=== PATIENT | male | born 1955 | race Caucasian/White ===

== ENCOUNTER 2017-08-27 22:32 | Emergency (ER) | payer BC, OTHER ==
--- NOTE | 2017-08-28 00:28 | ED ---
Head Injury - HPI Summary HPI Summary: Patient who had been drinking multiple beers was playing Frisbee with his dog when he slipped on the grass and hit his head. States he could not move any limb and did not have any sensation in his body for 5 minutes. Patient now ambulatory, states symptoms has resolved. Small abrasion to forehead, right thumb, contusion to start her head and some left-sided neck stiffness. Denies headache, LOC, vision change, N/V, focal deficits, AMS, trauma to face, nose, mouth, back pain, abdominal pain, chest wall pain, bilateral lower extremity pain, bilateral upper extremity pain. Medical history is none. No anti-coag. - History Of Current Complaint Chief Complaint: EDHeadInjury Stated Complaint: FALL/HEAD AND BACK INJURY Time Seen by Provider: 08/27/17 22:47 Hx Obtained From: Patient Mechanism Of Injury: Fall From A Standing Position Onset/Duration: Started Hours Ago Severity Currently: None Pain Intensity: 0 Pain Scale Used: 0-10 Numeric Location of Head Injury: Occipital Associated Signs And Symptoms: Neck Pain, Numbness - Allergies/Home Medications Allergies/Adverse Reactions: Allergies Allergy/AdvReac Type Severity Reaction Status Date / Time No Known Allergies Allergy Verified 08/27/17 22:35 PMH/Surg Hx/FS Hx/Imm Hx Endocrine/Hematology History: Denies: Hx Anticoagulant Therapy Cardiovascular History: Denies: Hx Cardiac Arrest Respiratory History: Denies: Hx Lung Cancer Musculoskeletal History: Reports: Hx Back Problems - Back injury 02/2015 Neurological History: Denies: Hx CVA Infectious Disease History: No Infectious Disease History: Denies: Traveled Outside the [place] in Last 30 Days - Family History Known Family History: Positive: None - N/C - Social History Alcohol Use: Daily Alcohol Amount: 6-7 beers daily Substance Use Type: Reports: None Hx Tobacco Use: No Smoking Status (MU): Never Smoked Tobacco Review of Systems Constitutional: Negative Eyes: Negative ENT: Negative Cardiovascular: Negative Respiratory: Negative Gastrointestinal: Negative Genitourinary: Negative Musculoskeletal: Negative Positive: Bruising Neurological: Negative Psychological: Normal All Other Systems Reviewed And Are Negative: Yes Physical Exam - Summary Physical Exam Summary: Abrasion to forehead, and right second digit. No indication for suturing. Tenderness along left paraspinal muscles of C-spine. Full range of motion of neck. Full range of motion of jaw. No tenderness to palpation. Trauma noted to nose or mouth. Small contusion to posterior head. With no indication of laceration or abrasion. Full range of motion of jaw. No pain with palpation and no ecchymosis, deformity, swelling noted to back, chest wall, abdomen. Patient moves bilateral upper extremities and bilateral lower extremities freely. Patient is alert and oriented, responds appropriately. No loss of sensation in any extremities. Patient ambulatory. Triage Information Reviewed: Yes Vital Signs On Initial Exam: Initial Vitals Temp Pulse Resp BP Pulse Ox 98.8 F 77 18 180/88 95 08/27/17 22:35 08/27/17 22:35 08/27/17 22:35 08/27/17 22:35 08/27/17 22:35 Vital Signs Reviewed: Yes Appearance: Positive: Well-Appearing Skin: Positive: Warm Head/Face: Positive: Normal Head/Face Inspection Eyes: Positive: Normal ENT: Positive: Normal ENT inspection Neck: Positive: Supple Respiratory/Lung Sounds: Positive: Clear to Auscultation Cardiovascular: Positive: Normal Abdomen Description: Positive: Nontender Musculoskeletal: Positive: Normal Neurological: Positive: Normal Psychiatric: Positive: Normal AVPU Assessment: Alert - Claudia Coma Scale Best Eye Response: 4 - Spontaneous Best Motor Response: 6 - Obeys Commands Best Verbal Response: 5 - Oriented Coma Scale Total: 15 Diagnostics - Vital Signs Vital Signs Temp Pulse Resp BP Pulse Ox 08/27/17 22:35 98.8 F 77 18 180/88 95 - Laboratory Lab Statement: Any lab studies that have been ordered have been reviewed, and results considered in the medical decision making process. Head Injury Course/Dx Course Of Treatment: Patient who had been drinking multiple beers was playing Frisbee with his dog when he slipped on the grass and hit his head. States he could not move any limb and did not have any sensation in his body for 5 minutes. Patient now ambulatory, states symptoms has resolved. Small abrasion to forehead, right thumb, contusion to start her head and some left-sided neck stiffness. Denies headache, LOC, vision change, N/V, focal deficits, AMS, trauma to face, nose, mouth, back pain, abdominal pain, chest wall pain, bilateral lower extremity pain, bilateral upper extremity pain. Medical history is none. No anti-coag. PE: Abrasion to forehead, and right second digit. No indication for suturing. Tenderness along left paraspinal muscles of C-spine. Full range of motion of neck. Full range of motion of jaw. No tenderness to palpation. Trauma noted to nose or mouth. Small contusion to posterior head. With no indication of laceration or abrasion. Full range of motion of jaw. No pain with palpation and no ecchymosis, deformity, swelling noted to back, chest wall, abdomen. Patient moves bilateral upper extremities and bilateral lower extremities freely. Patient is alert and oriented, responds appropriately. No loss of sensation in any extremities. Patient ambulatory. Patient got tired of waiting for CT of head, wants to leave AGAINST MEDICAL ADVICE. Agreed to sign AMA document. Patient alert, oriented, ambulatory, clinically sober. Competent to make decisions regarding his health. - Diagnoses Provider Diagnoses: Fall, Head injury Discharge - Sign-Out/Discharge Documenting (check all that apply): Patient Departure - Discharge Plan Condition: Stable Disposition: AGAINST MEDICAL ADVICE Referrals: Erich Hernandez MD [Primary Care Provider] - - Billing Disposition and Condition Condition: STABLE Disposition: Against Medical Advice
[2017-08-28 00:54] VITALS: BP 0/0
== END 2017-08-27 23:52 | disposition left against medical advice (07) ==
LOC: ED 22:32
DX: S09.90XA Unspecified injury of head, initial encounter (principal); S00.93XA Contusion of unspecified part of head, initial encounter; S00.81XA Abrasion of other part of head, initial encounter; S60.410A Abrasion of right index finger, initial encounter; W01.0XXA Fall on same level from slipping, tripping and stumbling without subsequent striking against object, initial encounter; Y93.89 Activity, other specified; Y92.007 Garden or yard of unspecified non-institutional (private) residence as the place of occurrence of the external cause; M54.2 Cervicalgia; R20.0 Anesthesia of skin
CPT/HCPCS: 99282

== ENCOUNTER 2018-05-08 11:12 | Emergency (ER) | payer BC ==
[2018-05-08] MEDS ORDERED: Ketorolac INJ* 60 MG/2 ML VIAL IM ONE (11:43)
[2018-05-08] MEDS ORDERED: Morphine 10 MG/ML VIAL (1 ml) IM ONE (11:43)
--- NOTE | 2018-05-08 11:46 | ED ---
Back Pain - HPI Summary HPI Summary: This patient is a 62 year old M presenting to ED with a chief complaint of intermittent R lower back pain since a couple days ago. During onset, he was bending over to pick something up and felt a twinge in his back. It took him 5 minutes to get from his car and into his office this morning. He took some Advil and put on a Lidocaine patch. The CC is described as spasms and non- radiating to the groin. The patient rates the pain 8/10 in severity. Symptoms aggravated by movement and ambulation. Symptoms alleviated by sitting at rest. The patient is currently in a wheelchair upon arrival due to the pain. Patient reports tingling and numbness in his fingers bilaterally but denies in his LE. Patient denies incontinence and hematuria. He reports he had a similar episode 4 -5 years ago. PMHx of HTN. Denies hx of aneurysms or kidney stones. The patient reports he saw his PCP a while ago after slipping and falling on concrete steps and they found that he might have arthritis. - History of Current Complaint Chief Complaint: EDBackInjuryPain Stated Complaint: BACK SPASMS PER PT Time Seen by Provider: 05/08/18 11:32 Hx Obtained From: Patient Onset/Duration: Sudden Onset, Lasting Days, Still Present Onset/Duration: Started Days Ago, Still Present Timing: Intermittent Back Pain Location: Is Discrete @ - R lower back Severity Initially: Severe Severity Currently: Severe Pain Intensity: 8 Pain Scale Used: 0-10 Numeric Aggravating Symptom(s): Movement, Walking Alleviating Symptom(s): Rest - in sitting position Associated Signs And Symptoms: Positive: Numbness, Tingling - Allergies/Home Medications Allergies/Adverse Reactions: Allergies Allergy/AdvReac Type Severity Reaction Status Date / Time No Known Allergies Allergy Verified 05/08/18 11:24 Home Medications: Home Medications F Heart Med PO DAILY 05/08/18 [History] PMH/Surg Hx/FS Hx/Imm Hx Endocrine/Hematology History: Denies: Hx Anticoagulant Therapy Cardiovascular History: Reports: Hx Hypertension Denies: Hx Cardiac Arrest Respiratory History: Denies: Hx Lung Cancer Musculoskeletal History: Reports: Hx Back Problems - Back injury 02/2015 Neurological History: Denies: Hx CVA Infectious Disease History: No Infectious Disease History: Denies: Traveled Outside the [place] in Last 30 Days - Family History Known Family History: Positive: Other Negative: Blood Disorder Family History: denies hx of arthritis - Social History Alcohol Use: Daily Alcohol Amount: 6-7 beers daily Substance Use Type: Reports: None Hx Tobacco Use: No Smoking Status (MU): Never Smoked Tobacco Review of Systems Negative: Fever, Chills Negative: Erythema Negative: Sore Throat Negative: Chest Pain Negative: Shortness Of Breath, Cough Negative: Abdominal Pain, Vomiting, Nausea Negative: hematuria, incontinence Positive: Myalgia - intermittent R lower back pain. Negative: Edema Negative: Rash Neurological: Other - denies dizziness Positive: Numbness - tingling and numbness in his fingers bilaterally but denies in his LE All Other Systems Reviewed And Are Negative: Yes Physical Exam - Summary Physical Exam Summary: Constitutional: Well-developed, Well-nourished, Alert. (-) Distressed Skin: Warm, Dry HENT: Normocephalic; Atraumatic Eyes: Conjunctiva normal Neck: Musculoskeletal ROM normal neck. (-) JVD, (-) Stridor, (-) Tracheal deviation Cardio: Rhythm regular, rate normal, Heart sounds normal; Intact distal pulses; The pedal pulses are 2+ and symmetric. Radial pulses are 2+ and symmetric. (-) Murmur Pulmonary/Chest wall: Effort normal. (-) Respiratory distress, (-) Wheezes, (-) Rales Abd: Soft, (-) epigastric tenderness, (-) Distension, (-) Guarding, (-) Rebound Musculoskeletal: (-) Edema, Diminished straight leg raise on the right, limited by pain, although extremity strength is intact. Lymph: (-) Cervical adenopathy Neuro: Alert, Oriented x3 Psych: Mood and affect Normal Triage Information Reviewed: Yes Vital Signs On Initial Exam: Initial Vitals Temp Pulse Resp BP Pulse Ox 98.9 F 93 16 157/108 97 05/08/18 11:23 05/08/18 11:23 05/08/18 11:23 05/08/18 11:23 05/08/18 11:23 Vital Signs Reviewed: Yes Diagnostics - Vital Signs Vital Signs Temp Pulse Resp BP Pulse Ox 05/08/18 11:23 98.9 F 93 16 157/108 97 - Laboratory Lab Statement: Any lab studies that have been ordered have been reviewed, and results considered in the medical decision making process. - CT Abd/Pel CT CT Interpretation Completed By: Radiologist Summary of CT Findings: 1. NO HYDRONEPHROSIS OR NEPHROLITHIASIS. 2. HEPATOMEGALY WITH FATTY INFILTRATION OF LIVER. 3. DIVERTIC[address]IS. Dr. Brennan has reviewed this radiology report. Re-Evaluation - Re-Evaluation First Eval Re-Evaluation Time: 12:48 Change: Improved Comment: Patient feels better. Second Eval Re-Evaluation Time: 14:06 Comment: Discussed results with the patient and plan for discharge. Patient understands and agrees with this plan. Back Pain Course/Dx - Course Assessment/Plan: This patient is a 62 year old M presenting to ED with a chief complaint of intermittent R lower back pain since a couple days ago. He does not have bowel or bladder sx so I dont think its cauda equina syndrome. In the ED course, the patient was given Toradol and Morphine. CT abd/pel reveals 1. NO HYDRONEPHROSIS OR NEPHROLITHIASIS. 2. HEPATOMEGALY WITH FATTY INFILTRATION OF LIVER. 3. DIVERTICULOSIS. This patient will be discharged with dx of back strain. Patient understands and agrees with this plan. - Diagnoses Differential Diagnosis/HQI/PQRI: Positive: Other - back strain Provider Diagnoses: Back strain Discharge - Sign-Out/Discharge Documenting (check all that apply): Patient Departure - discharge Patient Received Moderate/Deep Sedation with Procedure: No - Discharge Plan Condition: Stable Disposition: HOME Patient Education Materials: Low Back Strain (ED) Referrals: Erich Hernandez MD [Primary Care Provider] - (Follow up in 2-3 days.) Additional Instructions: RETURN TO THE EMERGENCY DEPARTMENT FOR CHANGING OR WORSENING SYMPTOMS - Attestation Statements Document Initiated by Scribe: Yes Documenting Scribe: Zachery Corado Provider For Whom Scribe is Documenting (Include Credential): John Brennan MD Scribe Attestation: Zachery Delgado, scribed for John Brennan MD on 05/08/18 at 1355. Status of Scribe Document: Ready
[2018-05-08 13:42] LABS: Urine Appearance Clear; Urine Bilirubin Negative (Negative); Urine Blood Negative (Negative); Urine Color Yellow; Urine Glucose 1+(50 mg/dL) (Negative); Urine Ketones Negative (Negative); Urine Nitrite Negative (Negative); Urine Protein Negative (Negative); Urine Urobilinogen Negative (Negative)
[2018-05-08 14:26] VITALS: BP 148/87
== END 2018-05-08 14:25 | disposition home or self-care (01) ==
LOC: ED 11:12
DX: S29.012A Strain of muscle and tendon of back wall of thorax, initial encounter (principal); M54.5 Low back pain; X58.XXXA Exposure to other specified factors, initial encounter; Y92.9 Unspecified place or not applicable; I10 Essential (primary) hypertension
CPT/HCPCS: 74176; 81003; 96372; 99282; J1885; J2270